=== PATIENT | female | born 1995 | race American Indian/Alaskan Native ===

== ENCOUNTER 2020-01-31 12:27 | Inpatient (IN) | payer MEDICAID ==
[2020-01-31] MEDS ORDERED: ONDANSETRON 4 MG/2 ML INJ IV PRN (13:21)
[2020-01-31] MEDS ORDERED: LACTATED RINGERS 1,000 ML ONE (13:23)
[2020-01-31] MEDS ORDERED: miSOPROStol 200 MCG TAB PR PRN (13:56)
[2020-01-31] MEDS ORDERED: OXYTOCIN 10 UNIT/1 ML INJ IM PRN (13:56)
[2020-01-31] MEDS ORDERED: CARBOPROST TROMETHAMINE 250 MCG/1 ML INJ IM PRN (13:56)
[2020-01-31] MEDS ORDERED: MINERAL OIL 30 ML ORAL LIQD PO PRN (13:56)
[2020-01-31] MEDS ORDERED: fentaNYL 100 MCG/2 ML INJ IV PRN (13:56)
[2020-01-31] MEDS ORDERED: NalbUPHINE 10 MG/1 ML INJ IV PRN (13:56)
[2020-01-31] MEDS ORDERED: BUTORPHANOL 2 MG/1 ML INJ IV PRN (13:56)
[2020-01-31] MEDS ORDERED: ePHEDrine SULFATE 50 MG/1 ML INJ IV PRN ×2 (13:56→16:17)
[2020-01-31] MEDS ORDERED: METHYLERGONOVINE MALEATE 0.2 MG/ML VIAL IM PRN (13:56)
[2020-01-31] MEDS ORDERED: LIDOCAINE (2%) 20 MG/1 ML VIAL 20 ML MDV INFILTRATI ONE (13:56)
[2020-01-31] MEDS ORDERED: TERBUTALINE 1 MG/1 ML INJ SUB-Q PRN (13:56)
[2020-01-31] MEDS ORDERED: LACTATED RINGERS 1,000 ML IV SCH ×2 (14:00)
[2020-01-31] MEDS ORDERED: OXYTOCIN DRIP 30 UNITS/500 ML BAG IV SCH (14:00)
--- NOTE | 2020-01-31 14:03 | History and Physical Report ---
History of Present Illness Date of examination: 01/31/20 Chief complaint: painful contractions History of present illness: EDC Confirmation: 02/17/2020 Past History : 1 Living Children: 0 Past Medical History: Negative Past Medical History Past Surgical History: Negative Past Surgical History Social History: Patient is single Smoking History: Patient is a former smoker. Risk Factors: Smoked Tobacco Use: Former smoker Cigarettes: Yes Year quit: 05/2019 Counseled to quit/cut down: yes Drug use: yes Substance: marijuana Comments: last used end may Alcohol use: no PAP Smear History: Date of Last PAP Smear: 07/11/2019 Results: normal Past Medical History Surgery (Non-color matcher): Negative Past Surgical History Abnormal PAP: negative Social Hx: Patient is single Smoking History: Patient is a former smoker. Infection History Personal hx. of genital herpes: no Partner hx. of genital herpes: no Rash, Viral, or Febrile illness since last LMP? no Varicella/Chicken Pox Status: Previous Disease TB Risk: no Genetic History Congenital Heart Defect: Mom: no Dad: no Silvina Disease: Mom: no Dad: no Thalassemia Mom: no Dad: no Neural Tube Defect Mom: no Dad: no Down's Syndrome Mom: no Dad: no Jay Jay-Sachs Mom: no Dad: no Sickle Cell Disease/Trait Mom: no Dad: no Hemophilia Mom: no Dad: no Muscular Dystrophy Mom: no Dad: no Cystic Fibrosis Mom: no Dad: no Maicol Chorea Mom: no Dad: no Mental Retardation Mom: no Dad: no Fragile X Mom: no Dad: no Other Genetic/Chromosomal Disorder Mom: no Dad: no Child w/other defect Mom: no Dad: no Enviromental Exposures Enviromental Exposures Reviewed Xray Exposure: no Medication, drug, or alcohol use since LMP: yes Chemical/Other Exposure: no Exposure to Cat Liter: no Hx of Parvovirus (Fifth Disease): no Occupational Exposure to Children: other 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[employer] Current Allergies (reviewed today): No known allergies Past History Past Medical History: other (see HPI) Past Surgical History: other (see HPI) TEAROOM HOST History: trichomonas (treated) Family/Genetic History: other (see HPI) - Obstetrical History Expected Date of Delivery: 02/17/20 Actual Gestation: 37 Week(s) 4 Day(s) : 1 Para: 0 Hx # Term Pregnancies: 0 Number of Pregnancies: 0 Spontaneous Abortions: 0 Induced : 0 Number of Living Children: 0 Medications and Allergies Allergies Allergy/AdvReac Type Severity Reaction Status Date / Time No Known Allergies Allergy Unverified 01/31/20 12:30 Active Meds: Active Medications Lactated Ringer's (Lactated Ringers) 1,000 mls @ 125 mls/hr IV DIRECT SANJIV Last Admin: 01/31/20 13:35 Dose: 1,200 mls/hr Documented by: Ondansetron HCl (Zofran) 4 mg IV Q4H PRN PRN Reason: Nausea And Vomiting Last Admin: 01/31/20 13:35 Dose: 4 mg Documented by: Review of Systems All systems: negative - Vital Signs Vital signs: Vital Signs Temp Pulse Resp BP 98.2 F 92 H 20 141/92 01/31/20 12:55 01/31/20 12:55 01/31/20 12:55 01/31/20 12:55 Temp Pulse Resp BP Pulse Ox 98.2 F 102 H 20 143/87 99 01/31/20 12:55 01/31/20 13:57 01/31/20 12:55 01/31/20 13:44 01/31/20 13:57 - Physical Exam Breasts: Positive: normal Cardiovascular: Regular rate Lungs: Positive: Normal air movement Abdomen: Positive: normal appearance, soft Genitourinary (Female): Positive: normal external genitalia, normal perenium Vulva: both: normal (no HSV lesions noted) Vagina: Positive: normal moisture Uterus: Positive: normal size Extremities: Positive: normal Deep Tendon Reflex Grade: Normal +2 - Obstetrical FHR: category 2 Uterine Contraction Monitor Mode: External Cervical Dilatation: 5.5 Cervical Effacement Percentage: 100 station: 0 Uterine Contraction Frequency (min): 2-4 Uterine Contraction Duration: 60 Uterine Contraction Pattern: Regular Uterine Tone Measurement Phase: Contraction Uterine Contraction Intensity: Moderate Results All other labs normal. Assessment and Plan 24y/o presented in active labor @ 37+4 weeks. She was examined in the office prior to arrival in triage, 2-/0. She has made significant cervical change in the last 1.5 hours. Admission orders in EMR. GBS +. - Patient Problems (1) HSV (herpes simplex virus) infection Current Visit: Yes Status: Acute Plan to address problem: no signs of outbreak Continue to observe (2) Active labor at term Current Visit: Yes Status: Acute Plan to address problem: Admission orders in EMR Anticipate (3) 37 weeks gestation of Current Visit: Yes Status: Acute (4) GBS (group B Streptococcus carrier), +RV culture, currently Current Visit: Yes Status: Acute Plan to address problem: Ampicillin q4hr until delivery
[2020-01-31] MEDS ORDERED: AMPICILLIN/NS 2 GM/100 ML 2 GM/100 ML BAG IV ONE (15:00)
[2020-01-31 15:01] LABS: Hematocrit 33.7 % (30.3-42.9); Hemoglobin 11.8 gm/dl (10.1-14.3); Mean Corpuscular HGB Conc 35 % (30-34); Mean Corpuscular Volume 95 fl (79-97); Platelet Count 150 K/mm3 (140-440); Red Blood Count 3.54 M/mm3 (3.65-5.03); Red Cell Distribution Width 13.5 % (13.2-15.2)
[2020-01-31] MEDS ORDERED: DEXMEDETOMIDINE 200 MCG/2 ML VIAL IV ONE (15:38)
[2020-01-31] MEDS ORDERED: NALOXONE 2 MG/2 ML INJ IV PRN (16:17)
--- NOTE | 2020-01-31 16:24 | Anesthesia Consultation ---
Anesthesia Consult and Med Hx Date of service: 01/31/20 - Airway Anesthetic Teeth Evaluation: Good ROM Head & Neck: Adequate Mental/Hyoid Distance: Adequate Mallampati Class: Class II Intubation Access Assessment: Good - Pulmonary Exam CTA: Yes - Cardiac Exam Cardiac Exam: RRR - Pre-Operative Health Status ASA Pre-Surgery Classification: ASA2 Proposed Anesthetic Plan: Epidural - Pulmonary Hx Smoking: No Hx Asthma: Yes (last used inhaler last year) Hx Respiratory Symptoms: No SOB: No COPD: No Home Oxygen Therapy: No Hx Pneumonia: No Hx Sleep Apnea: No - Cardiovascular System Hx Hypertension: No Hx Coronary Artery Disease: No Hx Heart Attack/AMI: No Hx Angina: No Hx Percutaneous Transluminal Coronary Angioplasty (PTCA): No Hx Cardia Arrhythmia: No Hx Pacemaker: No Hx Internal Defibrillator: No Hx Valvular Heart Disease: No Hx Heart Murmur: No Hx Peripheral Vascular Disease: No - Central Nervous System Hx Neuromuscular Disorder: No Hx Seizures: No CVA: No Hx Back Pain: Yes Hx Psychiatric Problems: No - Gastrointestinal Hx Ulcer: No Hx Gastroesophageal Reflux Disease: Yes - Endocrine Hx Renal Disease: No Hx End Stage Renal Disease: No Hx Cirrhosis: No Hx Liver Disease: No Hx Insulin Dependent Diabetes: No Hx Non-Insulin Dependent Diabetes: No Hx Thyroid Disease: No Hx Hypothyroidism: No Hx Hyperthyroidism: No - Hematic Hx Anemia: No Hx Sickle Cell Disease: No - Other Systems Hx Alcohol Use: Yes (social ) Hx Substance Use: No Hx Cancer: Yes
--- NOTE | 2020-01-31 16:26 | Progress Note ---
Labor Epidural - Labor Epidural Start Time: 15:50 Stop Time: 16:02 Performed by:: KAYE MORALES Procedure: Patient is requesting a laboring epidural for laboring pain. Patient IDed, H&P reviewed, all questions and concerns were answered, and consent was signed. Timeout was performed at bedside. Patient in sitting position. Sterile prep and drape was performed. [3] ml of 1% lidocaine skin wheal at L[3]- L [4]. 18- gauge Tuohy epidural needle was advanced to loss of resistance with air technique to 8cm. Negative CSF negative blood via Tuohy needle. #27g Spinal needle clear, free flowing CSF, Pecedex 10 mcg. Epidural catheter advanced to [12] centimeters. [negative] Aspiration [negative] test dose. Sterile dressing applied. Patient tolerated procedure.
[2020-01-31] MEDS ORDERED: fentaNYL-BUPIV 2 MCG/ML-0.125% 200 MCG/100 ML BAG EPIDURAL SCH (17:00)
[2020-01-31] MEDS ORDERED: AMPICILLIN/NS 1 GM/50 ML 1 GM/50 ML BAG IV SCH (18:00)
--- NOTE | 2020-01-31 19:02 | Procedure Note ---
OB Delivery Note - Delivery Date of Delivery: 01/31/20 (LEIGH Coates Dial) Occupational Health Physician: JEM KENNEY Estimated blood loss: 300cc - Vaginal Delivery presentation: vertex Delivery position: OA (transverse shoulders, left hand presented with head) Intrapartum events: none Delivery induction: none Delivery augmentation: rupture of membranes, pitocin Delivery monitor: external FHT, external uterine Route of delivery: Delivery placenta: spontaneous Delivery cord: 3 umbilical vessels Episiotomy: none Delivery laceration: none Anesthesia: epidural Delivery comments: Male infant born over intact perineum, placed skin to skin on mother's abdomen, 3 vessel cord clamped and cut. Placenta del intact and complete, no lacs to repair (1st degree lac, hemostatic). mother and infant LDR stable. all counts correct. - Infant A at 1 minute: 8 at 5 minutes: 9 Gender: Male (6#10)
[2020-01-31] MEDS ORDERED: LANOLIN/ZINC/DIMETHICONE (LANSINOH) 7 GM TP PRN (21:38)
[2020-01-31] MEDS ORDERED: MAGNESIUM HYDROXIDE (MOM) ORAL LIQD UDC PO PRN (21:38)
[2020-01-31] MEDS ORDERED: BENZOCAINE/MENTHOL 20/0.5% TOP SPRAY 56 GM TP PRN (21:38)
[2020-01-31] MEDS ORDERED: ACETAMINOPHEN 325 MG TAB PO PRN (21:38)
[2020-01-31] MEDS ORDERED: diphenhydrAMINE 25 MG CAP PO PRN (21:38)
[2020-01-31] MEDS ORDERED: PROMETHAZINE 25 MG TAB PO PRN (21:38)
[2020-01-31] MEDS ORDERED: miSOPROStol 100 MCG TAB PR PRN (21:38)
[2020-01-31] MEDS ORDERED: WITCH HAZEL/ GLYCERIN PAD TP PRN (21:38)
[2020-01-31] MEDS: DOCUSATE SODIUM 100 MG CAP PO SCH (22:13)
[2020-01-31] MEDS: FERROUS SULFATE 325 MG TAB PO SCH (22:13)
[2020-01-31] MEDS: IBUPROFEN 800 MG TAB PO SCH (22:13)
[2020-02-01] MEDS: IBUPROFEN 800 MG TAB PO SCH (05:33)
--- NOTE | 2020-02-01 06:23 | Post Anesthesia Evaluation ---
- Post Anesthesia Evaluation Patient Participated: Yes Airway Patent: Yes Stable Respiratory Function: Yes Nausea/Vomiting: No Temp > 96.8F: Yes Pain Manageable: Yes Adequeate Hydration: Yes Anesthesia Complications: No Block Receding Appropriately: Yes Patient on Ventilator: No
--- NOTE | 2020-02-01 08:40 | Discharge Summary ---
Providers - Providers Date of Admission: 01/31/20 13:56 Date of discharge: 02/01/20 (Pt agrees and desires discahrge home) Attending physician: KEVEN LINTON Primary care physician: KEVEN LINTON Hospitalization Reason for admission: active labor Delivery: Episiotomy: none Laceration: 1st degree (No repair needed. Well approximated.) Other procedures: none complications: none Discharge diagnosis: IUP at term delivered baby: male Pertinent studies: Pt agrees to discharge home. Discussed that she may not go home today d/t baby not being discharged home, but that discharge is written so that she may leave. Pt verbalized understanding. Hospital course: S: Doing well. Passing flatus, ambulating, and voiding okay. BC: Pills. Desires Depo before discharge. O: VSS. I&O's okay. Fundus firm, minimal bleeding noted. 1st degree laceration well approximated, no edema, s/sx of infection noted. A: 24 y.o. s/p @ term, stable for discharge home. P: Discharge home with instructions. To schedule a circumcision appointment in 1 week. To schedule a visit in 4 weeks. Condition at discharge: Good Disposition: DC-01 TO HOME OR SELFCARE Plan - Discharge Medications Prescriptions: Lidocain2.5%/Prilocai2.5% [Emla] 1 applic TP ONCE #1 tube Ibuprofen [Motrin] 800 mg PO Q8HR PRN #30 tablet PRN Reason: Pain, Moderate (4-6) - Provider Discharge Summary Activity: routine, no sex for 6 weeks, no heavy lifting 4 weeks, no strenuous exercise Diet: routine Instructions: routine Additional instructions: [] Smoking cessation referral if applicable(refer to patient education folder for contact #) [] Refer to [facility] Booklet Call your doctor immediately for: * Fever > 100.5 * Heavy vaginal bleeding ( >1 pad per hour) * Severe persistent headache * Shortness of breath * Reddened, hot, painful area to leg or breast * Drainage or odor from incision. * Keep incision clean and dry at all times and follow doctor's instructions regarding bathing/showering - Follow up plan Follow up: KEVEN LINTON MD [Primary Care Provider] - 7 Days (Congratulations! Please schedule a visit in the office in 4 weeks. Please schedule your son's circumcision appointment in 1 week. You have been prescribed EMLA cream for your son's circumcision. Please do not use this cream at home, but bring it with you to your son's circumcision appointment. If you have any questions or concerns, please do not hesitate to call the office at [phone]. )
[2020-02-01 08:49] LABS: Hematocrit 29.9 % (30.3-42.9); Hemoglobin 9.9 gm/dl (10.1-14.3)
[2020-02-01] MEDS ORDERED: medroxyPROGESTERone ACETATE 150 MG/ML SYRINGE IM SCH (09:00)
[2020-02-01] MEDS: DOCUSATE SODIUM 100 MG CAP PO SCH ×2 (09:27→22:01)
[2020-02-01] MEDS: FERROUS SULFATE 325 MG TAB PO SCH ×2 (09:27→22:01)
[2020-02-01] MEDS ORDERED: PRENATAL VIT27-FE FUMARATE-FOLIC ACID VIT TAB PO SCH (10:00)
[2020-02-02] MEDS: IBUPROFEN 800 MG TAB PO SCH (00:08)
[2020-02-02] MEDS ORDERED: DIPHtheria,PERTUSSIS(ACELL),TETANUS VACCINE/PF 0.5 ML VIAL IM ONE (06:00)
[2020-02-02 14:40] VITALS: BP 117/82
== END 2020-02-02 18:04 | disposition home or self-care (01) | DRG 774 ==
LOC: TRG 12:27 → APU 12:28 → TRG 13:56 → LD 13:56 → OB 21:04
PROVIDERS: ADMIT Obstetrics & Gynecology; ATTEND Obstetrics & Gynecology
PROC: 10E0XZZ Delivery of Products of Conception, External Approach (ICD-10-PCS; principal; 2020-01-31)
PROC: 3E0R3BZ Introduction of Anesthetic Agent into Spinal Canal, Percutaneous Approach (ICD-10-PCS; 2020-01-31)
PROC: 00HU33Z Insertion of Infusion Device into Spinal Canal, Percutaneous Approach (ICD-10-PCS; 2020-01-31)
DX: O99.824 Streptococcus B carrier state complicating childbirth (principal); O98.52 Other viral diseases complicating childbirth; Z3A.37 37 weeks gestation of pregnancy; B00.9 Herpesviral infection, unspecified; Z37.0 Single live birth; Z20.828 Contact with and (suspected) exposure to other viral communicable diseases; O99.52 Diseases of the respiratory system complicating childbirth; J45.909 Unspecified asthma, uncomplicated; O99.62 Diseases of the digestive system complicating childbirth; K21.9 Gastro-esophageal reflux disease without esophagitis; O70.0 First degree perineal laceration during delivery
CPT/HCPCS: 36415; 59025; 85014; 85018; 85027; 86592; 86850; 86900; 86901; 96360; 96372; G0378; J0290; J0595; J1050; J2405; J3490; J7120; U0003-CS

== ENCOUNTER 2021-11-28 09:07 | Inpatient (IN) | payer MEDICAID ==
[2021-11-28] MEDS ORDERED: OXYTOCIN 10 UNIT/1 ML INJ ONE (09:22)
[2021-11-28] MEDS ORDERED: OXYTOCIN DRIP 30,000 MILLIUNITS/500 ML BAG IV ONE (09:22)
[2021-11-28] MEDS ORDERED: PROMETHAZINE 25 MG TAB PO PRN (09:36)
--- NOTE | 2021-11-28 09:39 | Procedure Note ---
OB Delivery Note - Delivery Date of Delivery: 11/28/21 Learning Disabilities Specialist: JEM KENNEY Estimated blood loss: 100cc - Vaginal Delivery presentation: vertex Delivery position: OA Intrapartum events: meconium, precipitous labor- <3hr Delivery induction: none Delivery monitor: none Route of delivery: Delivery placenta: spontaneous Delivery cord: 3 umbilical vessels Episiotomy: none Delivery laceration: none Anesthesia: none Delivery comments: female baby precipitously delivered shortly upon entering building, upon arrival, baby was on the warmer and patient was stable. placenta del intact and complete. Cord blood collected. no lacerations to repair. Fundus firm, lochia scant. mother and infant remain in stable LDR condition. all counts correct. - A at 1 minute: 7 at 5 minutes: 9 Infant Gender: Female (6#13)
--- NOTE | 2021-11-28 09:40 | History and Physical Report ---
History of Present Illness Date of examination: 11/28/21 Chief complaint: labor and delivery History of present illness: EDC Calculations by LMP: 12/07/2021 Past History : 2 Term Births: 1 Premature Births: 0 Living Children: 1 Para: 1 Mult. Births: 0 Prev : 0 Aborta: 0 Elect. Ab: 0 Spont. Ab: 0 Ectopics: 0 # 1 Delivery date: 01/31/2020 Weeks Gestation: 37+4 Delivery type: Vaginal Anesthesia type: epidural Delivery location: [facility] Infant Sex: male weight: 6.63 Comments: none Past Medical History: Reviewed and updated today: Eczema Past Surgical History: Reviewed history from 10/10/2019 and no changes required: Negative Past Surgical History Family History Summary: Other Family Member - Has No Family History of Ovarvian Cancer - Entered On: 04/23/2021 Other Family Member - Has No Family History of Breast Cancer - Entered On: 04/23/2021 Other Family Member - Has Family History of Hypertension - Entered On: 04/23/2021 Other Family Member - Has Family History Colon Cancer - Entered On: 04/23/2021 Social History: Patient is single Marital Status: Children: 1 Occupation: [employer] Smoking History: Patient is a former smoker. Risk Factors: Smoked Tobacco Use: Current every day smoker Cigarettes: Yes -- 1/2 pack(s) per day, Year Started: 2013 Smokeless Tobacco Use: Never Counseled to Quit/Cut Down: yes Passive Smoke Exposure: no HIV High Risk Behavior: no Exercise: no Seatbelt Use: 100 % No Dietary Counseling Reason: pn yes Alcohol Use: yes Drinks per day: social Drug Use: yes Drug of Choice: marijuana Past Medical History Surgery (Non-security sales consultant): Negative Past Surgical History Abnormal PAP: negative Uterine Anomaly: negative Social Hx: Patient is single Marital Status: Children: 1 Occupation: [employer] Smoking History: Patient is a former smoker. Infection History Hx of STD: chlamydia HIV Risk Eval: no Hepatitis B Risk Eval: low risk Personal hx. of genital herpes: yes Genetic History Congenital Heart Defect: Mom: no Dad: no Silvina Disease: Mom: no Dad: no Thalassemia Mom: no Dad: no Neural Tube Defect Mom: no Dad: no Down's Syndrome Mom: no Dad: no Jay Jay-Sachs Mom: no Dad: no Sickle Cell Disease/Trait Mom: no Dad: no Hemophilia Mom: no Dad: no Muscular Dystrophy Mom: no Dad: no Cystic Fibrosis Mom: no Dad: no [place] Chorea Mom: no Dad: no Mental Retardation Mom: no Dad: no Fragile X Mom: no Dad: no Other Genetic/Chromosomal Disorder Mom: no Dad: no Child w/other defect Mom: no Dad: no Active Medications (reviewed today): DEPO-PROVERA 150 MG/ML INTRAMUSCULAR SUSPENSION (MEDROXYPROGESTERONE ACETATE) 1 inj x every 12 weeks VALACYCLOVIR HCL 500 MG ORAL TABLET (VALACYCLOVIR HCL) 1 po bid METRONIDAZOLE 500 MG ORAL TABLET (METRONIDAZOLE) take all 4 pills at one time AZITHROMYCIN 500 MG ORAL TABLET (AZITHROMYCIN) 2 tabs po at one time PNV () Current Allergies (reviewed today): No known allergies Past History Past Medical History: other (see HPI) Past Surgical History: other (see HPI) DIRECTOR FUNDS DEVELOPMENT History: other (see HPI) Family/Genetic History: other (see HPI) Social history: no significant social history - Obstetrical History Expected Date of Delivery: 12/07/21 Actual Gestation: 38 Week(s) 5 Day(s) : 2 Para: 1 Hx # Term Pregnancies: 1 Number of Pregnancies: 0 Spontaneous Abortions: 0 Induced : 0 Number of Living Children: 1 Medications and Allergies Allergies Allergy/AdvReac Type Severity Reaction Status Date / Time No Known Allergies Allergy Verified 11/28/21 09:39 Home Medications Medication Instructions Recorded Confirmed Last Taken Type Ibuprofen [Motrin] 800 mg PO Q8HR PRN #30 tablet 02/01/20 Unknown Rx Lidocain2.5%/Prilocai2.5% [Emla] 1 applic TP ONCE #1 tube 02/01/20 Unknown Rx Active Meds: Active Medications Acetaminophen (Acetaminophen 325 Mg Tab) 650 mg PO Q4H PRN PRN Reason: Pain MILD(1-3)/Fever >100.5/VICTORIA Benzocaine/Menthol (Benzocaine/Menthol 20/0.5% Top Hanna 56 Gm) 1 spray TP PRN PRN PRN Reason: Episiotomy Pain Bisacodyl (Bisacodyl 10 Mg Rect Supp) 10 mg TN BID PRN PRN Reason: Constipation Diphenhydramine HCl (Diphenhydramine 25 Mg Cap) 25 mg PO Q6H PRN PRN Reason: Itching Diphtheria/Tetanus/Acell Pertussis (Tetanus,Diph,Pertuss(Acell) Vaccine 0.5 Ml Syringe) 0.5 ml IM .ONCE ONE Stop: 11/29/21 09:38 Ferrous Sulfate (Ferrous Sulfate 325 Mg Tab) 325 mg PO BID SANJIV Oxytocin/Sodium Chloride (Pitocin/Ns 30 Unit/500ml) 30 units in 500 mls @ 40 mls/hr IV TITR SANJIV; Protocol Ibuprofen (Ibuprofen 800 Mg Tab) 800 mg PO Q6H SANJIV Magnesium Hydroxide (Magnesium Hydroxide (Mom) Oral Liqd Udc) 30 ml PO HS PRN PRN Reason: Constipation Multi-Ingredient Ointment (Lanolin/Zinc/Dimethicone (Lansinoh) 7 Gm) 1 applic TP PRN PRN PRN Reason: Sore Nipples Multivitamins/Iron/Calcium ( Gjm81-Qm Fumarate-Folic Acid Vit Tab) 1 each PO QDAY SANJIV Ondansetron HCl (Ondansetron 4 Mg/2 Ml Inj) 4 mg IV Q8H PRN PRN Reason: Nausea And Vomiting Promethazine HCl (Promethazine 25 Mg Tab) 25 mg PO Q6H PRN PRN Reason: Nausea And Vomiting Sodium Chloride (Sodium Chloride 0.9% 10 Ml Flush Syringe) 10 ml IV PRN NR Witch Kristie/Glycerin (Witch Kristie/ Glycerin Pad) 1 each TP PRN PRN PRN Reason: Hemorrhoid/cleansing/soothing Review of Systems All systems: negative - Vital Signs Vital signs: Vital Signs Pulse BP Pulse Ox 86 135/80 91 11/28/21 09:17 11/28/21 09:17 11/28/21 09:17 Temp Pulse Resp BP Pulse Ox 98.3 F 80 14 98/69 99 11/28/21 09:36 11/28/21 09:37 11/28/21 09:36 11/28/21 09:36 11/28/21 09:37 - Physical Exam Breasts: Positive: normal Cardiovascular: Regular rate Lungs: Positive: Clear to auscultation, Normal air movement Abdomen: Positive: soft Genitourinary (Female): Positive: normal external genitalia, normal perenium Vulva: both: normal (no sign of lesion) Vagina: Positive: normal moisture Anus/Rectum: Positive: normal perianal skin Extremities: Positive: normal Results Result Diagrams: 11/28/21 11:49 All other labs normal. Assessment and Plan 26y/o presented in active labor and delivered shortly after arrival to unit. - Patient Problems (1) (normal spontaneous vaginal delivery) Current Visit: No Status: Acute
[2021-11-28] MEDS ORDERED: ONDANSETRON 4 MG/2 ML INJ IV PRN (10:00)
[2021-11-28] MEDS ORDERED: ACETAMINOPHEN 325 MG TAB PO PRN (10:00)
[2021-11-28] MEDS ORDERED: LANOLIN/ZINC/DIMETHICONE (LANSINOH) 7 GM TP PRN (10:00)
[2021-11-28] MEDS ORDERED: WITCH HAZEL/ GLYCERIN PAD TP PRN (10:00)
[2021-11-28] MEDS ORDERED: PRENATAL VIT27-FE FUMARATE-FOLIC ACID VIT TAB PO SCH (10:00)
[2021-11-28] MEDS ORDERED: OXYTOCIN 10 UNIT/1 ML INJ IM NR (10:00)
[2021-11-28] MEDS ORDERED: diphenhydrAMINE 25 MG CAP PO PRN (10:00)
[2021-11-28] MEDS ORDERED: OXYTOCIN DRIP 30 UNITS/500 ML BAG IV SCH (10:00)
[2021-11-28] MEDS ORDERED: BENZOCAINE/MENTHOL 20/0.5% TOP SPRAY 56 GM TP PRN (10:00)
[2021-11-28 12:06] LABS: Hematocrit 35.6 % (30.3-42.9); Hematocrit 35.7 % (30.3-42.9); Hemoglobin 11.7 gm/dl (10.1-14.3); Mean Corpuscular HGB Conc 33 % (30-34); Mean Corpuscular Volume 96 fl (79-97); Platelet Count 167 K/mm3 (140-440); Red Blood Count 3.73 M/mm3 (3.65-5.03); Red Cell Distribution Width 14.1 % (13.2-15.2)
[2021-11-28] MEDS: IBUPROFEN 800 MG TAB PO SCH ×2 (12:50→21:53)
[2021-11-28] MEDS: FERROUS SULFATE 325 MG TAB PO SCH ×2 (12:51→21:53)
[2021-11-28] MEDS ORDERED: MAGNESIUM HYDROXIDE (MOM) ORAL LIQD UDC PO PRN (22:00)
[2021-11-29] MEDS ORDERED: TETANUS,DIPH,PERTUSS(ACELL) VACCINE 0.5 ML SYRINGE IM ONE (06:00)
--- NOTE | 2021-11-29 07:46 | Discharge Summary ---
Providers - Providers Date of Admission: 11/28/21 09:08 Date of discharge: 11/29/21 Attending physician: ROSA FIGUEROA MD 11/28/21 09:37 Consult to Car Ferrier [CONS] Routine Reason For Exam: assistance with , SNS Primary care physician: ROSA FIGUEROA MD Hospitalization Reason for admission: active labor Delivery: Episiotomy: none complications: none [place] baby: female Hospital course: S: Pt doing well. Ambulating, voiding, and passing flatus okay. BC: Undecided. O: VSS. Fundus firm, minimal bleeding noted. A: 26 y.o. s/p . In good condition . P: Discharge home with instructions. Pt to schedule a visit in the office in 4-6 weeks. Condition at discharge: Good Disposition: 01 HOME / SELF CARE / HOMELESS Plan - Provider Discharge Summary Activity: routine, no sex for 6 weeks, no heavy lifting 4 weeks, no strenuous exercise Diet: routine Instructions: routine Additional instructions: [] Smoking cessation referral if applicable(refer to patient education folder for contact #) [] Refer to [facility] Booklet Call your doctor immediately for: * Fever > 100.5 * Heavy vaginal bleeding ( >1 pad per hour) * Severe persistent headache * Shortness of breath * Reddened, hot, painful area to leg or breast * Drainage or odor from incision. * Keep incision clean and dry at all times and follow doctor's instructions reg arding bathing/showering - Follow up plan Follow up: ROSA FIGUEROA MD [Primary Care Provider] - 7 Days (- Congratulations on your baby girl! - Thank you for allowing us to take care of you! - Please schedule your visit in the office in 4-6 weeks. - Should you have any questions or concerns after discharge, please do not hesitate to call the office at . )
[2021-11-29 10:01] LABS: Hemoglobin 10.6 gm/dl (10.1-14.3)
[2021-11-29 16:11] VITALS: BP 126/71
[2021-11-29] MEDS: IBUPROFEN 800 MG TAB PO SCH (16:17)
== END 2021-11-29 17:05 | disposition home or self-care (01) | DRG 775 ==
LOC: TRG 09:07 → APU 09:07 → TRG 09:44 → OB 11:17
PROVIDERS: ADMIT Student in an Organized Health Care Education/Training Program; ATTEND Student in an Organized Health Care Education/Training Program
PROC: 10E0XZZ Delivery of Products of Conception, External Approach (ICD-10-PCS; principal; 2021-11-28)
PROC: 3E0234Z Introduction of Serum, Toxoid and Vaccine into Muscle, Percutaneous Approach (ICD-10-PCS; 2021-11-29)
DX: O77.0 Labor and delivery complicated by meconium in amniotic fluid (principal); O62.3 Precipitate labor; Z3A.37 37 weeks gestation of pregnancy; Z37.0 Single live birth; Z20.822 Contact with and (suspected) exposure to COVID-19; Z23 Encounter for immunization; O99.334 Smoking (tobacco) complicating childbirth; F17.210 Nicotine dependence, cigarettes, uncomplicated
CPT/HCPCS: 36415; 85014; 85018; 85027; 86592; 86850; 86900; 86901; 96374; G0378; J2590; U0003